=== PATIENT | female | born 1995 | race Caucasian/White ===

== ENCOUNTER 2016-09-27 18:15 | Emergency (ER) | payer OTHER ==
--- NOTE | 2016-09-27 19:26 | DIAGNOSTIC IMAGING REPORT ---
PROCEDURE: XR ANKLE 3 OR 4 VIEWS - RIGHT INDICATION: TRAUMA/INJURY TECHNIQUE: Four views. COMPARISON: None. FINDINGS: Mild soft tissue swelling. Osseous structures and joint spaces are normal. IMPRESSION: 1. Mild soft tissue swelling. 2. Otherwise negative right ankle.
--- NOTE | 2016-09-27 19:31 | ED ORDER SUMMARY ---
..... Patient: SHARON CASTILLO OrderSheet [facility] VisitID: [id number] [address] [place] [address] 20y, F Registration Date/Time: 09/27/2016 ORDER SHEET Weight: 83.9 kg (estimated) Allergies: No Known Drug Allergy GENERAL ORDERS: Ankle 3 or 4V Right Urgent (18:28 09/27/2016 Mandeep R.N. verbal order read back to Yaima DICK) (Ack 18:33 PWeiler ER Tech1) (18:50 Flavia R.N.) Ice (18:30 09/27/2016 Mandeep Rodriguez.N. verbal order read back to Yaima DICK) (18:30 Mandeep R.N.) MEDICATION ORDERS: Motrin PO 800 mg (NOW) (18:39 09/27/2016 EKneillebrain P.A.-C) (Ack 18:46 Flavia R.N.) (18:50 Flavia R.N.) Hydrocodone-APAP PO 10/650 mg (NOW, HIGH ALERT MEDICATION) (18:39 09/27/2016 EKoroleva P.A.-C) (Ack 18:46 Flavia R.N.) (18:50 Flavia R.N.) IV FLUIDS: ORDER SHEET NOTES: [Electronically signed by Bhumika Thomas P.A.-C (19:39 09/27/2016)] [Electronically signed by Gerald Leiva R.N. (21:09 09/27/2016)] [Electronically locked/signed by Gerald Leiva R.N. (21:09 09/27/2016)]
--- NOTE | 2016-09-27 19:31 | ED NURSING NOTES ---
Clinical Report - Nurses [facility] [place] [address] 09/27/2016 18:17 Patient: SHARON CASTILLO TRIAGE Triage time 18:Sep 27 2016. Acuity: LEVEL 3. Chief Complaint: INJURY TO RIGHT ANKLE. Alert. KALE COMA SCORE: [place] Coma Scale: 15- eyes open spontaneously (4); best verbal response- oriented x 4 (5); best motor response- obeys commands (6). --18:38 Gerald Leiva R.N. 18:25 09/27/16. BP: 125/63. HR: 109. RR: 20. O2 saturation: 99% on room air. Temp: 97.8 F. Pain level now: 01/09. --18:38 Gerald Leiva R.N. Weight: 83.9 kg estimated. Height/Length: 64 inches Per Patient. BMI: 31.8. --18:31 Gerald Leiva R.N. Medications None. --18:30 Gerald Leiva R.N. Medication/allergy information source: the patient. --18:38 Gerald Leiva R.N. Allergies No Known Drug Allergy. --18:31 Gerald Leiva R.N. History Arrived by private vehicle. Historian: patient. Accompanied by family. Primary physician ([facility], [place], [place]). ( (R) Ankle Pain. Pt states that she was walking down a hill, slipped and rolled her ankle.). This occurred just prior to arrival and today (about 30 minutes ago). Occurred at a park. Mechanism of injury: sustained a twisting injury. She has had trouble walking. She has had new onset of weakness ((R) Ankle). 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 PAST MEDICAL HX: Negative. Tetanus status: unknown. Immunizations: up-to-date. Last normal menstrual period was 2 weeks ago. Denies current . SURGERY HX: Appendectomy. Tonsillectomy. SOCIAL HX: Never smoker. Alcohol use; consumes beer occasionally. No infectious disease exposure. ABUSE ASSESSMENT: No report of abuse. FALL RISK ASSESSMENT: Fall risk assessment completed. No fall risk identified. NUTRITIONAL RISK ASSESSMENT: The nutritional risk assessment revealed no deficiencies. LEARNING NEEDS ASSESSMENT: The learning needs assessment revealed no barriers. FUNCTIONAL ASSESSMENT: Functional assessment performed: mobility impairment present- this mobility impairment is a new problem. RLE. SKIN INTEGRITY ASSESSMENT: Skin integrity risk assessment completed. No skin integrity risk identified. --18:38 Gerald Leiva R.N. Interventions ID band on patient. To treatment room. --18:38 Gerald Leiva R.N. PHYSICAL ASSESSMENT To room via wheelchair. GENERAL / NEURO / PSYCH: Oriented X 4. Appears in pain. EXTREMITIES: Limited ROM present. Capillary refill is less than 2 seconds in the extremities. Extremity pulses are within normal limits. She was unable to bear weight. Neuro-vascular status intact to the extremity. Right ankle: tenderness. SKIN: Skin intact. Skin is warm and dry. --18:38 Gerald Leiva R.N. NURSING PROGRESS NOTES Cold pack applied to the right ankle. Reassurance given to the patient. Patient identifiers checked. Call light placed in reach. Side rails up x 1. Bed placed in lowest position. Brakes of bed on. Patient ready for evaluation- chart flagged and ED physician notified. --18:39 Gerald Leiva R.N. 18:50 09/27/2016 Motrin PO Tablets 800 mg given. Allergies verified and confirmed 5 rights. --18:50 Jenny Antunez R.N. 18:50 09/27/2016 Hydrocodone-APAP (Hydrocodone-Acetaminophen) PO 5/325 mg Tablets 2 tab given. Allergies verified and confirmed 5 rights. --18:50 Jenny Antunez R.N. Stirrup lower extremity splint applied to right ankle. Distal pulses intact, sensation intact and motor within normal limits. Patient fit with new crutches. Crutch training performed by Niwa; the patient demonstrated proper use. --19:19 Kaitlin Wang. DISPOSITION / DISCHARGE 19:30 09/27/16. BP: 122/60. HR: 89. RR: 16. O2 saturation: 100%. Temp: 98.5 F. Pain level now: 08/09. --21:06 Gerald Leiva R.N. Departure time: 1934. --21:06 Gerald Leiva R.N. 19:35. Condition at departure: improved. No learning barriers present. Discharge instructions provided and reviewed with the patient. Reviewed medication(s) dosing information (prescription given to pt). Reviewed splint care instructions. Reviewed referral to family practice for followup. Patient and parent verbalized understanding. Written instructions provided in Arabic. The patient was discharged by the physician. She was discharged home and accompanied by parent. She left the Emergency Department in a wheelchair and via private vehicle. Parent driving. --21:08 Gerald Leiva R.N. Locked/Released at 09/27/2016 21:09 by Gerald Leiva R.N.
--- NOTE | 2016-09-27 19:31 | ED ORDER SUMMARY ---
..... Patient: SHARON CASTILLO OrderSheet [facility] VisitID: [id number] [address] [place] [address] 20y, F Registration Date/Time: 09/27/2016 ORDER SHEET Weight: 83.9 kg (estimated) Allergies: No Known Drug Allergy GENERAL ORDERS: Ankle 3 or 4V Right Urgent (18:28 09/27/2016 Mandeep R.N. verbal order read back to Yaima DICK) (Ack 18:33 PWeiler ER Tech1) (18:50 Flavia R.N.) Ice (18:30 09/27/2016 Mandeep Rodriguez.N. verbal order read back to Yaima DICK) (18:30 Mandeep R.N.) MEDICATION ORDERS: Motrin PO 800 mg (NOW) (18:39 09/27/2016 EKneillebrain P.A.-C) (Ack 18:46 Flavia R.N.) (18:50 Flavia R.N.) Hydrocodone-APAP PO 10/650 mg (NOW, HIGH ALERT MEDICATION) (18:39 09/27/2016 EKoroleva P.A.-C) (Ack 18:46 Flavia R.N.) (18:50 Flavia R.N.) IV FLUIDS: ORDER SHEET NOTES: [Electronically signed by Bhumika Thomas P.A.-C (19:39 09/27/2016)] [Electronically signed by Gerald Leiva R.N. (21:09 09/27/2016)] [Electronically locked/signed by Gerald Leiva R.N. (21:09 09/27/2016)]
--- NOTE | 2016-09-27 19:31 | ED CLINICAL REPORT ---
Clinical Report - Physicians/Mid Levels [facility] [address] [place] [address] 09/27/2016 18:17 Patient: SHARON CASTILLO Time Seen: 19:37 Sep 27 2016. Arrived- By private vehicle. Historian- patient. HISTORY OF PRESENT ILLNESS Chief Complaint: Injury to the right ankle. The injury happened just prior to arrival. Occurred at home. The patient sustained a twisting injury. Patient is experiencing mild pain. Patient denies injury to the head. (Patient presents to the emergency room with a right ankle pain, with swelling status post internal injury, patient felt a pop of the time. Denies any prior injuries of the ankle.). REVIEW OF SYSTEMS The patient complains of pain on weight bearing. All systems otherwise negative, except as recorded above. PAST HISTORY The patient has not had a prior injury to the same area. Tetanus immunization status is up-to-date. SOCIAL HISTORY Never smoker. Alcohol use. No drug use. ADDITIONAL NOTES The nursing notes have been reviewed. PHYSICAL EXAM Vital Signs: 09/27/2016 18:25 BP: 125/63. HR: 109. RR: 20. O2 saturation: 99%. Temp: 97.8 F. Pain level now: 9/10. Appearance: Alert. Head: Head atraumatic. Neck: Normal inspection. Neck supple. CVS: Normal heart rate and rhythm. Heart sounds normal. Respiratory: No respiratory distress. Breath sounds normal. Skin: Skin intact. Skin warm. Extremities: Right leg. No tenderness or swelling. Right posterior ankle. No tenderness or swelling. Right lateral ankle: mild tenderness and swelling of the lateral ligaments and lateral malleolus. Small joint effusion present. No ligamentous laxity present. No ecchymosis or deformity. Right ankle. Right anterior ankle: tenderness and swelling. No abrasion or puncture wound. Right medial ankle. No tenderness or laceration. Base of the right 5th metatarsal. No tenderness or swelling. Gait: The patient was unable to bear weight. Neuro, Vascular and Tendons: Vascular status intact. Motor intact. Neuro: Oriented X 3. LABS, X-RAYS, AND EKG Rt Ankle X-ray: (IMPRESSION: 1. Mild soft tissue swelling. 2. Otherwise negative right ankle. Electronically Final signed by:Andrew Davey MD 09/27/2016 7:21:52 PM). PROGRESS AND PROCEDURES PROCEDURES (air stirrup by Klarissa avila, ns intact crutches given to pt). Course of Care: Patient with no signs of fracture of the right ankle, difficulty with tolerating anyway on the ankle. No cutaneous or Achilles injury. Patient given an air stirrup, crutches for follow-up. No signs of fracture or dislocation on x-ray. Patient with good distal sensation. Patient is stable. Symptoms better. Patient/family counseled. Disposition: Discharged. Condition: good. CLINICAL IMPRESSION Sprain of the tibiofibular ligament of the left ankle. INSTRUCTIONS Apply ice. Use crutches for three days. Wear splint. Elevate affected areas above chest level. You may walk and bear weight as tolerated. Prescription Medications: Hydrocodone/APAP 5mg / 325mg: take 1 orally every 6 hours as needed for pain. Dispense ten (10). No refill. Motrin 800 mg tablets: take 1 tablet orally every 8 hours as needed for pain. Dispense twenty (20). No refill. Substitution is permissible. Understanding of the discharge instructions verbalized. Follow-up with: Alfred Escobar DPM, Podiatry, , [facility], [address] [place] [address], [address] [place] [address] Follow up in five days. Call for the next available appointment. (Electronically signed by Bhumika Thomas P.A.-C 09/27/2016 19:39)
--- NOTE | 2016-09-27 19:31 | ED CLINICAL REPORT ---
Clinical Report - Physicians/Mid Levels [facility] [address] [place] [address] 09/27/2016 18:17 Patient: SHARON CASTILLO Time Seen: 19:37 Sep 27 2016. Arrived- By private vehicle. Historian- patient. HISTORY OF PRESENT ILLNESS Chief Complaint: Injury to the right ankle. The injury happened just prior to arrival. Occurred at home. The patient sustained a twisting injury. Patient is experiencing mild pain. Patient denies injury to the head. (Patient presents to the emergency room with a right ankle pain, with swelling status post internal injury, patient felt a pop of the time. Denies any prior injuries of the ankle.). REVIEW OF SYSTEMS The patient complains of pain on weight bearing. All systems otherwise negative, except as recorded above. PAST HISTORY The patient has not had a prior injury to the same area. Tetanus immunization status is up-to-date. SOCIAL HISTORY Never smoker. Alcohol use. No drug use. ADDITIONAL NOTES The nursing notes have been reviewed. PHYSICAL EXAM Vital Signs: 09/27/2016 18:25 BP: 125/63. HR: 109. RR: 20. O2 saturation: 99%. Temp: 97.8 F. Pain level now: 9/10. Appearance: Alert. Head: Head atraumatic. Neck: Normal inspection. Neck supple. CVS: Normal heart rate and rhythm. Heart sounds normal. Respiratory: No respiratory distress. Breath sounds normal. Skin: Skin intact. Skin warm. Extremities: Right leg. No tenderness or swelling. Right posterior ankle. No tenderness or swelling. Right lateral ankle: mild tenderness and swelling of the lateral ligaments and lateral malleolus. Small joint effusion present. No ligamentous laxity present. No ecchymosis or deformity. Right ankle. Right anterior ankle: tenderness and swelling. No abrasion or puncture wound. Right medial ankle. No tenderness or laceration. Base of the right 5th metatarsal. No tenderness or swelling. Gait: The patient was unable to bear weight. Neuro, Vascular and Tendons: Vascular status intact. Motor intact. Neuro: Oriented X 3. LABS, X-RAYS, AND EKG Rt Ankle X-ray: (IMPRESSION: 1. Mild soft tissue swelling. 2. Otherwise negative right ankle. Electronically Final signed by:Andrew Davey MD 09/27/2016 7:21:52 PM). PROGRESS AND PROCEDURES PROCEDURES (air stirrup by Klarissa avila, ns intact crutches given to pt). Course of Care: Patient with no signs of fracture of the right ankle, difficulty with tolerating anyway on the ankle. No cutaneous or Achilles injury. Patient given an air stirrup, crutches for follow-up. No signs of fracture or dislocation on x-ray. Patient with good distal sensation. Patient is stable. Symptoms better. Patient/family counseled. Disposition: Discharged. Condition: good. CLINICAL IMPRESSION Sprain of the tibiofibular ligament of the left ankle. INSTRUCTIONS Apply ice. Use crutches for three days. Wear splint. Elevate affected areas above chest level. You may walk and bear weight as tolerated. Prescription Medications: Hydrocodone/APAP 5mg / 325mg: take 1 orally every 6 hours as needed for pain. Dispense ten (10). No refill. Motrin 800 mg tablets: take 1 tablet orally every 8 hours as needed for pain. Dispense twenty (20). No refill. Substitution is permissible. Understanding of the discharge instructions verbalized. Follow-up with: Alfred Escobar DPM, Podiatry, , [facility], [address] [place] [address], [address] [place] [address] Follow up in five days. Call for the next available appointment. (Electronically signed by Bhumika Thomas P.A.-C 09/27/2016 19:39)
--- NOTE | 2016-09-27 19:31 | ED NURSING NOTES ---
Clinical Report - Nurses [facility] [place] [address] 09/27/2016 18:17 Patient: SHARON CASTILLO TRIAGE Triage time 18:Sep 27 2016. Acuity: LEVEL 3. Chief Complaint: INJURY TO RIGHT ANKLE. Alert. KALE COMA SCORE: [place] Coma Scale: 15- eyes open spontaneously (4); best verbal response- oriented x 4 (5); best motor response- obeys commands (6). --18:38 Gerald Leiva R.N. 18:25 09/27/16. BP: 125/63. HR: 109. RR: 20. O2 saturation: 99% on room air. Temp: 97.8 F. Pain level now: 01/09. --18:38 Gerald Leiva R.N. Weight: 83.9 kg estimated. Height/Length: 64 inches Per Patient. BMI: 31.8. --18:31 Gerald Leiva R.N. Medications None. --18:30 Gerald Leiva R.N. Medication/allergy information source: the patient. --18:38 Gerald Leiva R.N. Allergies No Known Drug Allergy. --18:31 Gerald Leiva R.N. History Arrived by private vehicle. Historian: patient. Accompanied by family. Primary physician ([facility], [place], [place]). ( (R) Ankle Pain. Pt states that she was walking down a hill, slipped and rolled her ankle.). This occurred just prior to arrival and today (about 30 minutes ago). Occurred at a park. Mechanism of injury: sustained a twisting injury. She has had trouble walking. She has had new onset of weakness ((R) Ankle). 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 PAST MEDICAL HX: Negative. Tetanus status: unknown. Immunizations: up-to-date. Last normal menstrual period was 2 weeks ago. Denies current . SURGERY HX: Appendectomy. Tonsillectomy. SOCIAL HX: Never smoker. Alcohol use; consumes beer occasionally. No infectious disease exposure. ABUSE ASSESSMENT: No report of abuse. FALL RISK ASSESSMENT: Fall risk assessment completed. No fall risk identified. NUTRITIONAL RISK ASSESSMENT: The nutritional risk assessment revealed no deficiencies. LEARNING NEEDS ASSESSMENT: The learning needs assessment revealed no barriers. FUNCTIONAL ASSESSMENT: Functional assessment performed: mobility impairment present- this mobility impairment is a new problem. RLE. SKIN INTEGRITY ASSESSMENT: Skin integrity risk assessment completed. No skin integrity risk identified. --18:38 Gerald Leiva R.N. Interventions ID band on patient. To treatment room. --18:38 Gerald eLiva R.N. PHYSICAL ASSESSMENT To room via wheelchair. GENERAL / NEURO / PSYCH: Oriented X 4. Appears in pain. EXTREMITIES: Limited ROM present. Capillary refill is less than 2 seconds in the extremities. Extremity pulses are within normal limits. She was unable to bear weight. Neuro-vascular status intact to the extremity. Right ankle: tenderness. SKIN: Skin intact. Skin is warm and dry. --18:38 Gerald Leiva R.N. NURSING PROGRESS NOTES Cold pack applied to the right ankle. Reassurance given to the patient. Patient identifiers checked. Call light placed in reach. Side rails up x 1. Bed placed in lowest position. Brakes of bed on. Patient ready for evaluation- chart flagged and ED physician notified. --18:39 Gerald Leiva R.N. 18:50 09/27/2016 Motrin PO Tablets 800 mg given. Allergies verified and confirmed 5 rights. --18:50 Jenny Antunez R.N. 18:50 09/27/2016 Hydrocodone-APAP (Hydrocodone-Acetaminophen) PO 5/325 mg Tablets 2 tab given. Allergies verified and confirmed 5 rights. --18:50 Jenny Antunez R.N. Stirrup lower extremity splint applied to right ankle. Distal pulses intact, sensation intact and motor within normal limits. Patient fit with new crutches. Crutch training performed by MENA PRESTIGE; the patient demonstrated proper use. --19:19 Kaitlin Wang. DISPOSITION / DISCHARGE 19:30 09/27/16. BP: 122/60. HR: 89. RR: 16. O2 saturation: 100%. Temp: 98.5 F. Pain level now: 08/09. --21:06 Gerald Leiva R.N. Departure time: 1934. --21:06 Gerald Leiva R.N. 19:35. Condition at departure: improved. No learning barriers present. Discharge instructions provided and reviewed with the patient. Reviewed medication(s) dosing information (prescription given to pt). Reviewed splint care instructions. Reviewed referral to family practice for followup. Patient and parent verbalized understanding. Written instructions provided in [place]. The patient was discharged by the physician. She was discharged home and accompanied by parent. She left the Emergency Department in a wheelchair and via private vehicle. Parent driving. --21:08 Gerald Leiva R.N. Locked/Released at 09/27/2016 21:09 by Gerald Leiva R.N.
--- NOTE | 2016-09-27 21:09 | ED MED RECONCILIATION SUMMARY ---
Patient: SHARON CASTILLO Medication Reconciliation Report [facility] VisitID: [id number] [address] [place] [address] 20y, F Registration Date/Time: 09/27/2016 Weight: 83.9 kg Height/Length: 64 in. BMI: 31.8 ALLERGIES: No Known Drug Allergy The patient's Home Medications are listed below: NONE. The source(s) of the original Home Medication information: patient The following Medications were given to the patient in the Emergency Department: Motrin [PO] PO 800 mg, administered: 09/27/2016 6:50:00 PM Hydrocodone-APAP [PO] PO 2 tab, administered: 09/27/2016 6:50:00 PM The following Medications were prescribed to the patient: Hydrocodone/APAP 5mg / 325mg: take 1 orally every 6 hours as needed for pain. Dispense ten (10). No refill. -- Bhumika Thomas PKatiaAEnoch Motrin 800 mg tablets: take 1 tablet orally every 8 hours as needed for pain. Dispense twenty (20). No refill. Substitution is permissible. -- Bhumika Thomas P.AEnoch
--- NOTE | 2016-09-27 21:09 | ED MED RECONCILIATION SUMMARY ---
Patient: SHARON CASTILLO Medication Reconciliation Report [facility] VisitID: [id number] [address] [place] [address] 20y, F Registration Date/Time: 09/27/2016 Weight: 83.9 kg Height/Length: 64 in. BMI: 31.8 ALLERGIES: No Known Drug Allergy The patient's Home Medications are listed below: NONE. The source(s) of the original Home Medication information: patient The following Medications were given to the patient in the Emergency Department: Motrin [PO] PO 800 mg, administered: 09/27/2016 6:50:00 PM Hydrocodone-APAP [PO] PO 2 tab, administered: 09/27/2016 6:50:00 PM The following Medications were prescribed to the patient: Hydrocodone/APAP 5mg / 325mg: take 1 orally every 6 hours as needed for pain. Dispense ten (10). No refill. -- Bhumika Thomas PKatiaAEnoch Motrin 800 mg tablets: take 1 tablet orally every 8 hours as needed for pain. Dispense twenty (20). No refill. Substitution is permissible. -- Bhumika Thomas P.AEnoch
--- NOTE | 2016-09-27 21:09 | ED DISCHARGE INSTRUCTIONS ---
Patient: SHARON CASTILLO General Instructions [facility] VisitID: [id number] [place] [address] 20y, F Registration Date/Time: 09/27/2016 Sprain of the tibiofibular ligament of the left ankle. INSTRUCTIONS Apply ice. Use crutches for three days. Wear splint. Elevate affected areas above chest level. You may walk and bear weight as tolerated. Prescription Medications: Hydrocodone/APAP 5mg / 325mg: take 1 orally every 6 hours as needed for pain. Dispense ten (10). No refill. Motrin 800 mg tablets: take 1 tablet orally every 8 hours as needed for pain. Dispense twenty (20). No refill. Substitution is permissible. Understanding of the discharge instructions verbalized. Follow-up with: Alfred Escobar DPM, Podiatry, , [facility], [address] [place] [address], [address], [place] [id number] Follow up in five days. Call for the next available appointment. ADDITIONAL INFORMATION Sprain, Ankle,With X-Ray A sprain is an injury to the ligaments or capsule that holds a joint together. There are no broken bones. Most sprains take from four to six weeks to heal. If the ligament is completely torn (severe sprain), it can take several months to recover. Mild to moderate sprains may be treated with an elastic wrap or an in-shoe splint to provide support and prevent re-injury. A mild sprain may not require any additional support. A severe sprain may require surgery to repair. Home care The following guidelines will help you care for your injury at home: Stay off the injured leg as much as possible until you can walk on it without pain. If you have a lot of pain with walking, crutches or a walker may be prescribed. (These can be rented or purchased at many pharmacies and surgical or orthopedic supply stores). Follow your doctor's advice regarding when to begin bearing weight on that leg. Keep your leg elevated to reduce pain and swelling. When sleeping, place a pillow under the injured leg. When sitting, support the injured leg so it is level with your waist. This is very important during the first 48 hours. Apply an ice pack (ice cubes in a plastic bag, wrapped in a towel) over the injured area for 20 minutes every 12 hours the first day. You can place the ice pack directly over the splint/cast. If you were given a boot, open it to apply the ice pack. Continue with ice packs 34 times a day for the next two days, then as needed for the relief of pain and swelling. You may use acetaminophen or ibuprofen to control pain, unless another pain medicine was prescribed. If you have chronic liver or kidney disease or ever had a stomach ulcer or GI bleeding, talk with your doctor before using these medicines. You may return to sports after healing, when you can run without pain. A sprained ankle is at risk for re-injury during the first six weeks. During that time, protect your ankle with an in-shoe splint that prevents tilting of your ankle from side to side. This is very important if you do active work or play sports during that time. Follow-up care Any X-rays you had today dont show any broken bones, breaks, or fractures. Sometimes fractures dont show up on the first X-ray. Bruises and sprains can sometimes hurt as much as a fracture. These injuries can take time to heal completely. If your symptoms dont improve or they get worse, talk with your doctor. You may need a repeat X-ray. When to seek medical care Get prompt medical attention if any of the following occur: The plaster cast or splint gets wet or soft The fiberglass cast or splint gets wet and does not dry for 24 hours Pain or swelling increases, or redness appears Toes become cold, blue, numb or tingly Re-injure your ankle Crutch Walking Crutch Adjustment Make sure the crutches you use are adjusted to fit you. When you stand, there should be room to fit 2-3 fingers between the top of the crutch and your armpit. Your elbow should be slightly bent when holding the hand resawyer. Crutch Walking: Place the crutches forward 12" in front of and 6" to the side of your feet. Lean your weight forward as you push down on the handgrips. Your weight should be on your hands and yourstrong leg, not your armpits . Let your body swing through, landing on the strong leg. Advance the crutches forward again. The crutch and the injured leg should move together. Going Up Steps: ("Up with the good") With both crutches on the same step as your feet, push down on the handgrips. Balancing with very light pressure on the weak leg, let your hands support your weight as you raise your strong leg onto the next higher step. Transfer all your weight to your strong leg (still bent) as you move the crutches up to the next step alongside the strong leg. With your weight evenly balanced on the two crutches and your strong leg, straighten your strong knee as you raise the weak leg up to the next step. Going Down Steps: ("Down with the bad") With both crutches on the same step as your feet, push down on the handgrips. With your weight evenly balanced on the two crutches and your strong leg, bend your strong knee as you lower the weak leg down to the next step. Let your strong leg support you (still bent) as you move the crutches down alongside the weak leg. Transfer your weight to your hands, balancing with very light pressure on the weak leg as you lower your strong leg alongside your weak leg. Aircast Traditional splints and casts for the foot and ankle protect the injury by preventing movement at the joints. However, many injuries heal better and faster if the injured joint can be moved, while protected at the same time. This is the reason for using an Aircast. There are two common type of AirCasts: 1) Air-Stirrup ankle splint This is often used to treat ankle sprains. It contains padded air cells in a plastic frame that fits into your shoe. This allows you to walk while preventing the ankle joint from rolling in or out causing re-injury. Ankle sprains can take 4-6 weeks to heal. Persons with severe injuries or over age 60 may require more time to heal. During that time, you are prone to re-injury by suddenly twisting your ankle again while the ligaments are still weak. When treating a sprain, the Air-Stirrup splint should be worn whenever walking for at least four weeks, or as long as you continue to have ankle pain. You should continue to wear it at least 6 weeks whenever running, playing sports or any activity where there is increased risk of re-injury. Talk to your doctor for specific advice about the treatment of your condition. 2) SP-Walker boot This is a short boot that provides support and protection to the foot and ankle while allowing you to walk. It contains padded air cells that provide compression and help circulation. It is used for both foot and ankle injuries - both sprains and minor fractures. Talk to your doctor for specific advice about the treatment of your condition. Air-Stirrup and SP-Walker are trademarks of [employer]. For more information about their products, see www.[employer]. Hydrocodone Bitartrate, Acetaminophen Oral tablet What is this medicine? ACETAMINOPHEN; HYDROCODONE (a set a DAMON naya fen; shima droe KOE done) is a pain reliever. It is used to treat mild to moderate pain. How should I use this medicine? Take this medicine by mouth. Swallow it with a full glass of water. Follow the directions on the prescription label. If the medicine upsets your stomach, take the medicine with food or milk. Do not take more than you are told to take. Talk to your airline captain regarding the use of this medicine in children. This medicine is not approved for use in children. What side effects may I notice from receiving this medicine? Side effects that you should report to your doctor or health day care worker as soon as possible: allergic reactions like skin rash, itching or hives, swelling of the face, lips, or tongue breathing problems confusion feeling faint or lightheaded, falls stomach pain yellowing of the eyes or skin Side effects that usually do not require medical attention (report to your doctor or health day care worker if they continue or are bothersome): nausea, vomiting stomach upset What may interact with this medicine? alcohol antihistamines isoniazid medicines for depression, anxiety, or psychotic disturbances medicines for sleep muscle relaxants naltrexone narcotic medicines (opiates) for pain phenobarbital ritonavir tramadol What if I miss a dose? If you miss a dose, take it as soon as you can. If it is almost time for your next dose, take only that dose. Do not take double or extra doses. Where should I keep my medicine? Keep out of the reach of children. This medicine can be abused. Keep your medicine in a safe place to protect it from theft. Do not share this medicine with anyone. Selling or giving away this medicine is dangerous and against the law. Store at room temperature between 15 and 30 degrees C (59 and 86 degrees F). Protect from light. Keep container tightly closed. Throw away any unused medicine after the expiration date. Discard unused medicine and used packaging carefully. Pets and children can be harmed if they find used or lost packages. What should I tell my health care provider before I take this medicine? They need to know if you have any of these conditions: brain tumor Crohn's disease, inflammatory bowel disease, or ulcerative colitis drink more than 3 alcohol-containing drinks per day drug abuse or addiction head injury heart or circulation problems kidney disease or problems going to the bathroom liver disease lung disease, asthma, or breathing problems an unusual or allergic reaction to acetaminophen, hydrocodone, other opioid analgesics, other medicines, foods, dyes, or preservatives or trying to get breast-feeding What should I watch for while using this medicine? Tell your doctor or health day care worker if your pain does not go away, if it gets worse, or if you have new or a different type of pain. You may develop tolerance to the medicine. Tolerance means that you will need a higher dose of the medicine for pain relief. Tolerance is normal and is expected if you take the medicine for a long time. Do not suddenly stop taking your medicine because you may develop a severe reaction. Your body becomes used to the medicine. This does NOT mean you are addicted. Addiction is a behavior related to getting and using a drug for a non-medical reason. If you have pain, you have a medical reason to take pain medicine. Your doctor will tell you how much medicine to take. If your doctor wants you to stop the medicine, the dose will be slowly lowered over time to avoid any side effects. You may get drowsy or dizzy when you first start taking the medicine or change doses. Do not drive, use machinery, or do anything that may be dangerous until you know how the medicine affects you. Stand or sit up slowly. There are different types of narcotic medicines (opiates) for pain. If you take more than one type at the same time, you may have more side effects. Give your health care provider a list of all medicines you use. Your doctor will tell you how much medicine to take. Do not take more medicine than directed. Call emergency for help if you have problems breathing. The medicine will cause constipation. Try to have a bowel movement at least every 2 to 3 days. If you do not have a bowel movement for 3 days, call your doctor or health day care worker. Too much acetaminophen can be very dangerous. Do not take Tylenol (acetaminophen) or medicines that contain acetaminophen with this medicine. Many non-prescription medicines contain acetaminophen. Always read the labels carefully. You have been given the following additional information: Sprain, Ankle, With X-Ray Crutch Walking Aircast Splint And Boot Hydrocodone Bitartrate, Acetaminophen Oral tablet You may walk and bear weight as tolerated. (Electronically signed by Bhumika Thomas P.A.-C 09/27/2016 19:39)
--- NOTE | 2016-09-27 21:09 | ED MAR SUMMARY ---
..... Medication Administration Record [facility] [address] [place] [address] Patient: SHARON CASTILLO Visit ID: [id number] 20y, F Weight: 83.9 kg Height/Length: 64 in BMI: 31.8 ALLERGIES: No Known Drug Allergy Given 18:50 09/27/2016 Jenny Antunez R.N. Medication Administered: MOTRIN [PO], Dose: 800 mg Tablets PO. Medication Ordered: Motrin PO 800 mg (NOW). Given 18:50 09/27/2016 Jenny Antunez, RKatiaN. Medication Administered: HYDROCODONE-APAP [PO] (HYDROCODONE-ACETAMINOPHEN), Dose: 2 tab 5/325 mg Tablets PO. Medication Ordered: Hydrocodone-APAP PO 10/650 mg (NOW, HIGH ALERT MEDICATION).
--- NOTE | 2016-09-27 21:09 | ED DISCHARGE INSTRUCTIONS ---
Patient: SHARON CASTILLO General Instructions [facility] VisitID: [id number] [place] [address] 20y, F Registration Date/Time: 09/27/2016 Sprain of the tibiofibular ligament of the left ankle. INSTRUCTIONS Apply ice. Use crutches for three days. Wear splint. Elevate affected areas above chest level. You may walk and bear weight as tolerated. Prescription Medications: Hydrocodone/APAP 5mg / 325mg: take 1 orally every 6 hours as needed for pain. Dispense ten (10). No refill. Motrin 800 mg tablets: take 1 tablet orally every 8 hours as needed for pain. Dispense twenty (20). No refill. Substitution is permissible. Understanding of the discharge instructions verbalized. Follow-up with: Alfred Escobar DPM, Podiatry, , [facility], [address] [place] [address], [address], [place] [id number] Follow up in five days. Call for the next available appointment. ADDITIONAL INFORMATION Sprain, Ankle,With X-Ray A sprain is an injury to the ligaments or capsule that holds a joint together. There are no broken bones. Most sprains take from four to six weeks to heal. If the ligament is completely torn (severe sprain), it can take several months to recover. Mild to moderate sprains may be treated with an elastic wrap or an in-shoe splint to provide support and prevent re-injury. A mild sprain may not require any additional support. A severe sprain may require surgery to repair. Home care The following guidelines will help you care for your injury at home: Stay off the injured leg as much as possible until you can walk on it without pain. If you have a lot of pain with walking, crutches or a walker may be prescribed. (These can be rented or purchased at many pharmacies and surgical or orthopedic supply stores). Follow your doctor's advice regarding when to begin bearing weight on that leg. Keep your leg elevated to reduce pain and swelling. When sleeping, place a pillow under the injured leg. When sitting, support the injured leg so it is level with your waist. This is very important during the first 48 hours. Apply an ice pack (ice cubes in a plastic bag, wrapped in a towel) over the injured area for 20 minutes every 12 hours the first day. You can place the ice pack directly over the splint/cast. If you were given a boot, open it to apply the ice pack. Continue with ice packs 34 times a day for the next two days, then as needed for the relief of pain and swelling. You may use acetaminophen or ibuprofen to control pain, unless another pain medicine was prescribed. If you have chronic liver or kidney disease or ever had a stomach ulcer or GI bleeding, talk with your doctor before using these medicines. You may return to sports after healing, when you can run without pain. A sprained ankle is at risk for re-injury during the first six weeks. During that time, protect your ankle with an in-shoe splint that prevents tilting of your ankle from side to side. This is very important if you do active work or play sports during that time. Follow-up care Any X-rays you had today dont show any broken bones, breaks, or fractures. Sometimes fractures dont show up on the first X-ray. Bruises and sprains can sometimes hurt as much as a fracture. These injuries can take time to heal completely. If your symptoms dont improve or they get worse, talk with your doctor. You may need a repeat X-ray. When to seek medical care Get prompt medical attention if any of the following occur: The plaster cast or splint gets wet or soft The fiberglass cast or splint gets wet and does not dry for 24 hours Pain or swelling increases, or redness appears Toes become cold, blue, numb or tingly Re-injure your ankle Crutch Walking Crutch Adjustment Make sure the crutches you use are adjusted to fit you. When you stand, there should be room to fit 2-3 fingers between the top of the crutch and your armpit. 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 Crutch Walking: Place the crutches forward 12" in front of and 6" to the side of your feet. Lean your weight forward as you push down on the handgrips. Your weight should be on your hands and yourstrong leg, not your armpits . Let your body swing through, landing on the strong leg. Advance the crutches forward again. The crutch and the injured leg should move together. Going Up Steps: ("Up with the good") With both crutches on the same step as your feet, push down on the handgrips. Balancing with very light pressure on the weak leg, let your hands support your weight as you raise your strong leg onto the next higher step. Transfer all your weight to your strong leg (still bent) as you move the crutches up to the next step alongside the strong leg. With your weight evenly balanced on the two crutches and your strong leg, straighten your strong knee as you raise the weak leg up to the next step. Going Down Steps: ("Down with the bad") With both crutches on the same step as your feet, push down on the handgrips. With your weight evenly balanced on the two crutches and your strong leg, bend your strong knee as you lower the weak leg down to the next step. Let your strong leg support you (still bent) as you move the crutches down alongside the weak leg. Transfer your weight to your hands, balancing with very light pressure on the weak leg as you lower your strong leg alongside your weak leg. Aircast Traditional splints and casts for the foot and ankle protect the injury by preventing movement at the joints. However, many injuries heal better and faster if the injured joint can be moved, while protected at the same time. This is the reason for using an Aircast. There are two common type of AirCasts: 1) Air-Stirrup ankle splint This is often used to treat ankle sprains. It contains padded air cells in a plastic frame that fits into your shoe. This allows you to walk while preventing the ankle joint from rolling in or out causing re-injury. Ankle sprains can take 4-6 weeks to heal. Persons with severe injuries or over age 60 may require more time to heal. During that time, you are prone to re-injury by suddenly twisting your ankle again while the ligaments are still weak. When treating a sprain, the Air-Stirrup splint should be worn whenever walking for at least four weeks, or as long as you continue to have ankle pain. You should continue to wear it at least 6 weeks whenever running, playing sports or any activity where there is increased risk of re-injury. Talk to your doctor for specific advice about the treatment of your condition. 2) SP-Walker boot This is a short boot that provides support and protection to the foot and ankle while allowing you to walk. It contains padded air cells that provide compression and help circulation. It is used for both foot and ankle injuries - both sprains and minor fractures. Talk to your doctor for specific advice about the treatment of your condition. Air-Stirrup and SP-Walker are trademarks of [employer]. For more information about their products, see www.[employer]. Hydrocodone Bitartrate, Acetaminophen Oral tablet What is this medicine? ACETAMINOPHEN; HYDROCODONE (a set a DAMON naya fen; shima droe KOE done) is a pain reliever. It is used to treat mild to moderate pain. How should I use this medicine? Take this medicine by mouth. Swallow it with a full glass of water. Follow the directions on the prescription label. If the medicine upsets your stomach, take the medicine with food or milk. Do not take more than you are told to take. Talk to your fruit culler regarding the use of this medicine in children. This medicine is not approved for use in children. What side effects may I notice from receiving this medicine? Side effects that you should report to your doctor or health care navigator as soon as possible: allergic reactions like skin rash, itching or hives, swelling of the face, lips, or tongue breathing problems confusion feeling faint or lightheaded, falls stomach pain yellowing of the eyes or skin Side effects that usually do not require medical attention (report to your doctor or health care navigator if they continue or are bothersome): nausea, vomiting stomach upset What may interact with this medicine? alcohol antihistamines isoniazid medicines for depression, anxiety, or psychotic disturbances medicines for sleep muscle relaxants naltrexone narcotic medicines (opiates) for pain phenobarbital ritonavir tramadol What if I miss a dose? If you miss a dose, take it as soon as you can. If it is almost time for your next dose, take only that dose. Do not take double or extra doses. Where should I keep my medicine? Keep out of the reach of children. This medicine can be abused. Keep your medicine in a safe place to protect it from theft. Do not share this medicine with anyone. Selling or giving away this medicine is dangerous and against the law. Store at room temperature between 15 and 30 degrees C (59 and 86 degrees F). Protect from light. Keep container tightly closed. Throw away any unused medicine after the expiration date. Discard unused medicine and used packaging carefully. Pets and children can be harmed if they find used or lost packages. What should I tell my health care provider before I take this medicine? They need to know if you have any of these conditions: brain tumor Crohn's disease, inflammatory bowel disease, or ulcerative colitis drink more than 3 alcohol-containing drinks per day drug abuse or addiction head injury heart or circulation problems kidney disease or problems going to the bathroom liver disease lung disease, asthma, or breathing problems an unusual or allergic reaction to acetaminophen, hydrocodone, other opioid analgesics, other medicines, foods, dyes, or preservatives or trying to get breast-feeding What should I watch for while using this medicine? Tell your doctor or health care navigator if your pain does not go away, if it gets worse, or if you have new or a different type of pain. You may develop tolerance to the medicine. Tolerance means that you will need a higher dose of the medicine for pain relief. Tolerance is normal and is expected if you take the medicine for a long time. Do not suddenly stop taking your medicine because you may develop a severe reaction. Your body becomes used to the medicine. This does NOT mean you are addicted. Addiction is a behavior related to getting and using a drug for a non-medical reason. If you have pain, you have a medical reason to take pain medicine. Your doctor will tell you how much medicine to take. If your doctor wants you to stop the medicine, the dose will be slowly lowered over time to avoid any side effects. You may get drowsy or dizzy when you first start taking the medicine or change doses. Do not drive, use machinery, or do anything that may be dangerous until you know how the medicine affects you. Stand or sit up slowly. There are different types of narcotic medicines (opiates) for pain. If you take more than one type at the same time, you may have more side effects. Give your health care provider a list of all medicines you use. Your doctor will tell you how much medicine to take. Do not take more medicine than directed. Call emergency for help if you have problems breathing. The medicine will cause constipation. Try to have a bowel movement at least every 2 to 3 days. If you do not have a bowel movement for 3 days, call your doctor or health care navigator. Too much acetaminophen can be very dangerous. Do not take Tylenol (acetaminophen) or medicines that contain acetaminophen with this medicine. Many non-prescription medicines contain acetaminophen. Always read the labels carefully. You have been given the following additional information: Sprain, Ankle, With X-Ray Crutch Walking Aircast Splint And Boot Hydrocodone Bitartrate, Acetaminophen Oral tablet You may walk and bear weight as tolerated. (Electronically signed by Bhumika Thomas P.A.-C 09/27/2016 19:39)
--- NOTE | 2016-09-27 21:09 | ED MAR SUMMARY ---
..... Medication Administration Record [facility] [address] [place] [address] Patient: SHARON CASTILLO Visit ID: [id number] 20y, F Weight: 83.9 kg Height/Length: 64 in BMI: 31.8 ALLERGIES: No Known Drug Allergy Given 18:50 09/27/2016 Jenny Antunez R.N. Medication Administered: MOTRIN [PO], Dose: 800 mg Tablets PO. Medication Ordered: Motrin PO 800 mg (NOW). Given 18:50 09/27/2016 Jenny Antunez, RKatiaN. Medication Administered: HYDROCODONE-APAP [PO] (HYDROCODONE-ACETAMINOPHEN), Dose: 2 tab 5/325 mg Tablets PO. Medication Ordered: Hydrocodone-APAP PO 10/650 mg (NOW, HIGH ALERT MEDICATION).
== END 2016-09-27 19:35 | disposition home or self-care (01) ==
LOC: ED SRH 18:15
DX: S93.431A Sprain of tibiofibular ligament of right ankle, initial encounter (principal); X50.1XXA Overexertion from prolonged static or awkward postures, initial encounter; Y93.01 Activity, walking, marching and hiking; Y92.019 Unspecified place in single-family (private) house as the place of occurrence of the external cause